=== PATIENT | male | born 1985 | race Caucasian/White ===

== ENCOUNTER 2023-11-18 21:07 | Emergency (ER) | payer BC, SELFPAY ==
[2023-11-18 21:13] VITALS: BP 135/77
[2023-11-18 21:26] LABS: % Basophils 0.4 % (0-2); % Eosinophils 5.3 % (0-6); % Immature Granulocytes 0.3 % (0-0.5); % Lymphocytes 19.4 % (20.5-51.1); % Monocytes 4.8 % (1.7-9.3); % Neutrophils 69.8 % (42.2-75.2); Absolute Basophils 0.1 10^3/uL (0-0.2); Absolute Eosinophils 0.6 10^3/uL (0-0.7); Absolute Lymphocytes 2.3 10^3/uL (1.2-3.4); Absolute Monocytes 0.6 10^3/uL (0.1-0.6); Absolute Neutrophils 8.2 10^3/uL (1.4-6.5); Hematocrit 42.4 % (39.0-52.0); Hemoglobin 14.5 g/dL (13.0-18.0); Mean Corp Hgb Conc. 34.2 g/dL (33.0-37.0); Mean Corpuscular Hgb 27.1 pg (27.0-31.0); Mean Corpuscular Volume 79.1 fL (80.0-94.0); Mean Platelet Volume 9.2 fL (7.4-10.4); Nucleated Red Blood Cells % 0 % (-); Platelet Count 296 10^3/uL (130-400); Red Blood Cell Count 5.36 10^6/uL (4.70-6.10); Red Cell Dist. Width 14.6 % (11.5-14.5); White Blood Cell Count 11.8 10^3/uL (4.8-10.8)
[2023-11-18 21:47] LABS: ALT (SGPT) 26 U/L (0-50); AST (SGOT) 23 U/L (17-59); Albumin 4.5 g/dl (3.5-5.0); Alkaline Phosphatase 68 U/L (38-126); Blood Urea Nitrogen 22 mg/dl (9-20); Calcium 9.6 mg/dl (8.4-10.2); Carbon Dioxide 26 mmol/L (22-30); Chloride 103 mmol/L (98-107); Glucose 133 mg/dl (70-99); Potassium 4.1 mmol/L (3.5-5.1); Sodium 138 mmol/L (135-145); Total Bilirubin 0.4 mg/dl (0.2-1.3); Total Protein 6.8 g/dl (6.3-8.2); eGFR > 60.00
[2023-11-18 21:51] LABS: Troponin I < 0.012 ng/ml
[2023-11-18 22:02] VITALS: BMI 37.5
[2023-11-18 22:07] VITALS: BP 118/72
[2023-11-18 22:45] LABS: D-Dimer < 0.27 ug/mlFEU (0.00-0.50)
[2023-11-18 22:59] LABS: Troponin I < 0.012 ng/ml
[2023-11-18 23:00] VITALS: BP 106/62
--- NOTE | 2023-11-18 23:49 | ED.GENMED ---
History of Present Illness
General
Chief Complaint: Chest Pain
Source: patient and family
Time Seen by Provider: 11/18/23 22:08
Travel History
Have you had any contact with someone who has COVID-19?: No
Do you have any symptoms of coronavirus? Fever > 100 degrees, chills, cough, shortness of breath, sore throat, loss of taste or smell, muscle aches, or headache?: No
History of Present Illness
History of Present Illness:
38-year-old male who presents with pain in the right lateral chest payne. The patient states that he came for evaluation because his gave concerns. Pain started mostly yesterday. Pain is worse when he twists and turns his head to the left
and right. States pain hurts toward the back in that same area bilaterally. 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 Patient denies shortness of breath. Does have a little bit of pain when he takes a big
deep breath. States he took ibuprofen. No shortness of breath. No leg swelling. No nausea or vomiting. No fevers.
Past History
Past History
ED Past Medical History: Other (Mitral valve prolapse.)
ED Past Surgical History: Appendectomy and Tonsilectomy (and Adnoids, Tubes in ears, R Ankle surg.)
Social History
Tobacco: Smoker (States he stopped four days ago.)
Alcohol: Occasional
Drug: None
Personal:
Living: with family
Employment: Employed
Family History
Family History: Other (Noncontributory)
Phy Exam
Physical Exam
Physical Exam:
CONSTITUTIONAL Patient alert and oriented to person, place and time. Well-appearing. Vital signs reviewed.
HEAD atraumatic, normocephalic.
EYES eyelids normal to inspection, Extraocular muscles intact, Conjunctiva normal, Sclera normal.
NECK normal range of motion, Trachea midline, no jugular venous distention.
RESPIRATORY CHEST No respiratory distress noted, Chest expansion equal, Bilateral breath sounds clear.
CARDIOVASCULAR regular rate and rhythm, Heart sounds normal.
ABDOMEN No distention.
BACK normal inspection, no obvious deformities
UPPER EXTREMITY range of motion normal, Motor strength normal, no cyanosis, no edema.
LOWER EXTREMITY range of motion normal, Motor strength normal, no cyanosis, no edema.
NEURO Speech normal, No focal motor deficits, S[place]an coma scale 15, Memory normal, Cranial Nerves intact to screening exam.
SKIN skin warm, dry, and normal in color.
PSYCHIATRIC patient oriented to person place and time, Normal affect.
Scores
Heart Score for Chest Pain Patients
STEMI patient?: No
History: Slightly or Non-Suspicious
ECG: Normal
Age: </= 45 years
Risk Factors: No Risk Factors
Troponin: </= Normal Limit
Heart Score for Chest Pain Patients: 0
Heart Score Risk: 2.5% MACE over next 6 weeks
Course
Orders/Labs/Results
Orders:
Orders
11/18/23 21:08
Electrocardiogram (*1) Urgent
Reason for Study: Chest Pain
EKG- Treatment ONCE
11/18/23 21:15
Cardiac Monitoring- Treatment ONCE
O2 Therapy [RESP] Urgent
Titrate/Wean O2 to maintain O2 sat greater than (%): 90
Special Instructions: Maintain sats >/=90%
Pulse Ox/spot Check [RESP] Urgent
Quantity: 1
Special Instructions: ON ROOM AIR
11/18/23 21:16
CXR2 [CR Chest - 2 Views ] Urgent
Comment:
Reason For Exam: chest pain
11/18/23 21:20
Complete Blood Count/With Diff Urgent
Comprehensive Metabolic Panel Urgent
Troponin I Urgent
11/18/23 22:25
D-Dimer Urgent
Troponin I Urgent
Abnormal Lab Results
11/18/23
21:20
WBC 11.8 H 10^3/uL
(4.8-10.8)
MCV 79.1 L fL
(80.0-94.0)
RDW 14.6 H %
(11.5-14.5)
Absolute Neuts (auto) 8.2 H 10^3/uL
(1.4-6.5)
Lymphocytes % 19.4 L %
(20.5-51.1)
BUN 22 H mg/dl
(9-20)
Glucose 133 H mg/dl
(70-99)
11/18/23 21:20
11/18/23 21:20
Vital Signs
Initial and Last Documented VS:
Initial Vital Signs
Temp Pulse Resp BP Pulse Ox
98.3 F 88 18 135/77 95
11/18/23 21:13 11/18/23 21:13 11/18/23 21:13 11/18/23 21:13 11/18/23 21:13
Last Documented Vital Signs
Temp Pulse Resp BP Pulse Ox
98.3 F 72 21 106/62 94
11/18/23 21:13 11/18/23 23:45 11/18/23 23:45 11/18/23 23:00 11/18/23 23:45
MDM/Problems Addressed
Differential Diagnosis Includes:
Pulmonary embolism, acute myocardial infarction, chest wall pain, reflux disease, aortic dissection, zoster
MDM/Problems Addressed:
Chest wall pain
*Radiology
Radiology exam reviewed: radiology read reviewed
*Pulse Oximetry
Patient hypoxic: no
*EKG
Interpreted by ED Provider?: Yes
Interpretation: normal
Rate: normal
Rhythm: sinus
[place]: normal axis
Interval: normal interval
QRS Pattern: normal QRS
Ischemia: no ischemia
*Cartoon Artist Interpretation
Rate: normal
Interpretation: normal
Rhythm: sinus
*Critical Care Note
Total Time (30-74mins, 75-104mins- exclusive of procedures): Not Applicable
Data Reviewed
Source: patient and family
Further Testing Considered But Not Given:
Consider D-dimer but patient has no risks and pain is clearly worse with movement.
Patient Management
Escalation/DeEscalation of care consider admission/obs:
Pain clearly worse with movement. Troponin x 2 unremarkable. Okay for discharge and outpatient follow-up. EKG normal. 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
ED Attending Note
-
Portions of this chart may have been created with voice recognition software.� Occasional wrong word or��sound alike� substitutions may have occurred due to the inherent limitations of voice recognition software.
Discharge Plan
Departure
Patient Disposition: Home (Routine Discharge)
Date of Disposition: 11/18/23
Time of Disposition: 23:52
Patient with high blood pressure during this ER visit?: No
Discharge Problem:
Chest pain
Instructions: Chest Pain PCP Follow Up
Prescriptions:
No Action
No Meds [No Current Medications]
0
amoxicillin 500 mg tablet
1,000 mg PO TID Qty: 19 0RF
azithromycin [Zithromax] 250 mg tablet
250 mg PO DAILY Qty: 6 0RF
Rx Instructions:
2 tabs day 1, then 1 tab for 4 days
Referrals:
Igor Hawk DO [Family Provider] -
Activity Restrictions/Additional Instructions:
Use ibuprofen as needed for control. Return immediately for shortness of breath, worsening symptoms, weakness of any kind or any other concerns. Please see your doctor in follow-up in the next 3 to 5 days
Interventions
Interventions:
*Risk Screen - Suicide Last Done: 11/18/23 22:02
*General Assessment Last Done: 11/18/23 22:02
*Neglect/Abuse Screening Last Done: 11/18/23 21:11
ED- Fall Risk Assessment Last Done: 11/18/23 22:02
*ED COVID-19 Vaccine History Last Done: 11/18/23 22:02
ED- Cardiac Assessment Last Done: 11/18/23 22:02
Discharge Date and Time
Print Language: BRITISH
== END 2023-11-19 00:09 | disposition home or self-care (01) ==
LOC: EMR 21:07
PROVIDERS: Emergency Medicine; EMERGENCY PHYSICIAN Emergency Medicine; FAMILY PHYSICIAN Family Medicine
DX: R07.89 Other chest pain (principal); I34.1 Nonrheumatic mitral (valve) prolapse; Z87.891 Personal history of nicotine dependence; Z88.5 Allergy status to narcotic agent; Z91.041 Radiographic dye allergy status
CPT/HCPCS: 99284; 94760; 71046; 80053; 84484; 85025; 85379; 93005

== ENCOUNTER 2024-02-27 17:54 | Emergency (ER) | payer SELFPAY ==
[2024-02-27 17:56] VITALS: BP 143/82
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
[2024-02-27] MEDS: MOTRIN 600 MG PO (19:07)
== END 2024-02-27 21:01 | disposition home or self-care (01) ==
LOC: EMR 17:54
PROVIDERS: EMERGENCY PHYSICIAN Emergency Medicine; FAMILY PHYSICIAN Family Medicine
DX: S16.1XXA Strain of muscle, fascia and tendon at neck level, initial encounter (principal); V89.2XXA Person injured in unspecified motor-vehicle accident, traffic, initial encounter; F17.200 Nicotine dependence, unspecified, uncomplicated; R03.0 Elevated blood-pressure reading, without diagnosis of hypertension
CPT/HCPCS: 99284; 72125

== ENCOUNTER → 2024-07-11 13:21 | Outpatient (REF) | payer OTHER, SELFPAY | LOC: REG 13:21 | PROVIDERS: ATTENDING PHYSICIAN Chiropractor | DX: M53.1 Cervicobrachial syndrome (principal); M99.01 Segmental and somatic dysfunction of cervical region; S13.4XXA Sprain of ligaments of cervical spine, initial encounter | CPT/HCPCS: 70030; 72040 ==

== ENCOUNTER 2024-08-16 20:21 | Emergency (ER) | payer BC, SELFPAY ==
[2024-08-16 20:52] VITALS: BP 150/88
[2024-08-16 21:19] LABS: % Basophils 0.4 % (0-2); % Eosinophils 3.1 % (0-6); % Immature Granulocytes 0.3 % (0-0.5); % Lymphocytes 23.1 % (20.5-51.1); % Monocytes 6.3 % (1.7-9.3); % Neutrophils 66.8 % (42.2-75.2); Absolute Basophils 0.1 10^3/uL (0-0.2); Absolute Eosinophils 0.4 10^3/uL (0-0.7); Absolute Lymphocytes 2.6 10^3/uL (1.2-3.4); Absolute Monocytes 0.7 10^3/uL (0.1-0.6); Absolute Neutrophils 7.6 10^3/uL (1.4-6.5); Hemoglobin 14.9 g/dL (13.0-18.0); Mean Corp Hgb Conc. 33.9 g/dL (33.0-37.0); Mean Corpuscular Hgb 28.1 pg (27.0-31.0); Mean Platelet Volume 8.6 fL (7.4-10.4); Nucleated Red Blood Cells % 0 % (-); Platelet Count 233 10^3/uL (130-400); Red Cell Dist. Width 13.7 % (11.5-14.5); White Blood Cell Count 11.4 10^3/uL (4.8-10.8)
[2024-08-16 21:39] LABS: ALT (SGPT) 29 U/L (0-50); AST (SGOT) 22 U/L (17-59); Alkaline Phosphatase 69 U/L (38-126); Blood Urea Nitrogen 27 mg/dl (9-20); Carbon Dioxide 28 mmol/L (22-30); Chloride 99 mmol/L (98-107); Glucose 90 mg/dl (70-99); Sodium 139 mmol/L (135-145); Total Bilirubin 0.8 mg/dl (0.2-1.3); Total Protein 7.4 g/dl (6.3-8.2); eGFR > 60.00
[2024-08-16 22:54] VITALS: BP 127/78; BMI 35.0
--- NOTE | 2024-08-17 01:08 | ED.GENMED ---
History of Present Illness
General
Chief Complaint: Headache
Source: patient
Exam Limitations: none
Time Seen by Provider: 08/17/24 00:45
Nursing documentation reviewed up to this point in time: agreed with
History of Present Illness
History of Present Illness:
Pleasant 38-year-old male presents with migraine headache. Does have a history of migraines and has had a headache for 5 days. He states that the pain is intermittent. Denies fever or chills. Reports no chest pain or shortness of breath. He is
concerned because there is a history of cerebral aneurysm in his family and he wanted to get evaluated.Patient denies neck pain. He reports pain with palpation of the left eye. Denies any visual acuity changes.
Past History
Past History
ED Past Medical History: Other (Mitral valve prolapse.)
ED Past Surgical History: Appendectomy and Tonsilectomy (and Adnoids, Tubes in ears, R Ankle surg.)
Social History
Tobacco: Smoker (States he stopped four days ago.)
Alcohol: Occasional
Drug: None
Personal:
Living: with family
Employment: Employed
Family History
Family History: Other (Noncontributory)
Review of Systems
Review of Systems
Allergies reviewed?: Yes
All Other Systems: ROS reviewed and negative except as documented in HPI and ROS
Neurological: Reports headache; Denies dizzy, weakness or numbness
Psychiatric: Reports anxiety
Phy Exam
General Physical Exam
General Presentation: well appearing and no apparent distress
General Skin: warm and dry
General Habitus: normal
General Mental: alert
General Hydration: appears well hydrated
ENT Exam
ENT Exam: EOMI, pharynx normal, neck supple and normocephalic
Eye Exam
Eye Exam: PERRL, cornea clear and conjunctiva normal
Cardiovascular Exam
Cardiovascular Exam: regular rate/rhythm, no edema, no murmur and normal peripheral pulses
Pulmonary Exam
Pulmonary Exam: lungs clear, no respiratory distress, no rales, no crackles, no rhonchi, no stridor, no wheezing and no cough
Gastrointestinal Exam
Gastrointestinal Exam: normal bowel sounds, non tender, soft, no organomegaly, no pulsatile mass and non distended
Neurological Exam
Neurological Exam: alert, oriented x3, no motor deficits and speech normal
Musculoskeletal Exam
Musculoskeletal Exam: full ROM and no edema
Skin Exam
Skin Exam: normal color, warm/dry, no rash and no petechia
Psychiatric Exam
Psychiatric Exam: normal mood/affect
Course
Orders/Labs/Results
Orders:
Orders
08/16/24 20:[address] [CT Head W/o Iv Contrast] Urgent
Comment:
Reason For Exam: headache/nasuea
08/16/24 21:10
Complete Blood Count/With Diff Urgent
Comprehensive Metabolic Panel Urgent
Erythrocyte Sed Rate Urgent
Comment: ADDED
08/17/24 01:06
Add On- LAB Urgent
Tests Added?: sed rate
Abnormal Lab Results
08/16/24
21:10
WBC 11.4 H 10^3/uL
(4.8-10.8)
Absolute Neuts (auto) 7.6 H 10^3/uL
(1.4-6.5)
Absolute Monos (auto) 0.7 H 10^3/uL
(0.1-0.6)
BUN 27 H mg/dl
(9-20)
08/16/24 21:10
08/16/24 21:10
Vital Signs
Initial and Last Documented VS:
Initial Vital Signs
Temp Pulse Resp BP Pulse Ox
98.5 F 68 18 150/88 98
08/16/24 20:52 08/16/24 20:52 08/16/24 20:52 08/16/24 20:52 08/16/24 20:52
Last Documented Vital Signs
Temp Pulse Resp BP Pulse Ox
98.5 F 81 19 120/75 96
08/16/24 20:52 08/17/24 01:28 08/17/24 01:28 08/17/24 01:28 08/17/24 01:28
*Critical Care Note
Total Time (30-74mins, 75-104mins- exclusive of procedures): Not Applicable
Update Note
Update Note:
CT HEAD
IMPRESSION:
No acute hemorrhage, herniation, or hydrocephalus.
No calvarial fracture.
The visualized paranasal sinuses and mastoid air cells are clear.
Patient is asymptomatic at this time.
No headache
He refuses to take any medicine. He states that if he needs to he will take ibuprofen at home.
He denies any neck pain or chest pain
No horizontal or vertical nystagmus on exam
Discussed possible MRI as an outpatient if symptoms persist. Patient has a family doctor and will follow-up. He requests no further testing at this time. He does not want any treatment for his dehydration. He will orally hydrate.
ED Attending Note
-
Portions of this chart may have been created with voice recognition software.� Occasional wrong word or��sound alike� substitutions may have occurred due to the inherent limitations of voice recognition software.
Discharge Plan
Departure
Patient Disposition: Home (Routine Discharge)
Date of Disposition: 08/17/24
Time of Disposition: 01:16
Patient with high blood pressure during this ER visit?: Yes
Discharge Problem:
Headache, Acute dehydration
Instructions: Headache, Adult (DC), Dehydration in adults - ED discharge instructions
Prescriptions:
No Action
No Meds [No Current Medications]
0
amoxicillin 500 mg tablet
1,000 mg PO TID Qty: 19 0RF
azithromycin [Zithromax] 250 mg tablet
250 mg PO DAILY Qty: 6 0RF
Rx Instructions:
2 tabs day 1, then 1 tab for 4 days
Referrals:
Sourav Dean MD [Active] - As needed
Igor Hawk DO [Family Provider] -
Activity Restrictions/Additional Instructions:
It was a pleasure meeting you and taking part in your care. We hope for your continued healing and wellness.
Please read discharge instructions in their entirety. However, they are for general education and may not describe your exact diagnosis at discharge. Information on your ER visit and medical conditions were discussed with you along with appropriate
follow up information...
If indicated, please take your medications as instructed and indicated on discharge paperwork.
Please schedule a follow up appointment as directed. Call to schedule an appointment
Please return to the emergency department with ANY change in, persisting, or worsening of symptoms. If any of your symptoms do not improve, or persist, or become more severe within 6-12 hours, please return to the emergency department for further
care.
Please return to the emergency department if you develop a headache, neck pain/stiffness, fever greater than 100.4F, chest pain, shortness of breath, persistent nausea, vomiting, slurred speech, difficulty walking, numbness/tingling, weakness, signs
of infection or any other symptoms that are worrisome to you.
If you have any questions or concerns please do not hesitate to call the Hospital at or E-mail me directly at [email or web address]
Interventions
Interventions:
*Risk Screen - Suicide Last Done: 08/16/24 22:54
*General Assessment Last Done: 08/16/24 20:52
*Neglect/Abuse Screening Last Done: 08/16/24 22:54
*ED- Fall Risk Assessment Last Done: 08/16/24 22:54
*ED COVID-19 Vaccine History Last Done: 08/16/24 20:52
*Nursing Disposition Last Done: 08/17/24 01:28
ED- Neurological Assessment Last Done: 08/16/24 22:54
Discharge Date and Time
Discharge Date/Time: 08/17/24 01:28
Print Language: ETHIOPIAN
[2024-08-17 01:28] VITALS: BP 120/75
[2024-08-17 01:50] LABS: Erythrocyte Sed Rate 2 mm/hour (0-20)
== END 2024-08-17 01:28 | disposition home or self-care (01) ==
LOC: EMR 20:21
PROVIDERS: Emergency Medicine; EMERGENCY PHYSICIAN Student in an Organized Health Care Education/Training Program; FAMILY PHYSICIAN Family Medicine
DX: R51.9 Headache, unspecified (principal); E86.0 Dehydration; I34.1 Nonrheumatic mitral (valve) prolapse; F17.200 Nicotine dependence, unspecified, uncomplicated; Z90.49 Acquired absence of other specified parts of digestive tract
CPT/HCPCS: 99284; 70450; 80053; 85025; 85652

== ENCOUNTER 2025-05-25 08:44 | Emergency (ER) | payer BC, SELFPAY ==
[2025-05-25 08:55] VITALS: BP 128/69
--- NOTE | 2025-05-25 09:52 | ED.GENMED ---
History of Present Illness
General
Chief Complaint: Back Pain
Time Seen by Provider: 05/25/25 09:31
History of Present Illness
History of Present Illness:
Patient is a 39-year-old male is otherwise healthy presenting to the emergency department back pain. Patient states that a week ago he was lifting something heavy. He developed shoulder pain after that incident. He had his use a massage gun
over his entire back after the incident and noticed some soreness to the entire back. However it is worse in the left mid back. 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 He states that it does hurt when he takes
in a deep breath but states that is due to pain in the back. He states that when he takes ibuprofen the pain resolves and the breathing improves as well. No long car rides or plane rides, no hemoptysis, no malignancy. No shortness of breath. He
does state that his father had a blood clot though he was also diagnosed with A-fib. Patient states he is only maintained 200 mg of ibuprofen. He states that he is here at the request of his family.
Past History
Past History
ED Past Medical History: Other (Mitral valve prolapse.)
ED Past Surgical History: Appendectomy and Tonsilectomy (and Adnoids, Tubes in ears, R Ankle surg.)
Social History
Tobacco: Smoker (States he stopped four days ago.)
Alcohol: Occasional
Drug: None
Personal:
Living: with family
Employment: Employed
Family History
Family History: Other (Noncontributory)
Phy Exam
Physical Exam
Physical Exam:
GENERAL: no acute distress
HEENT: atraumatic
NECK: no midline tenderness, normal range of motion
BACK: no midline tenderness, no other obvious trauma
CHEST: Tenderness to the posterior left lower ribs with no obvious ecchymoses or rashes, no flail segment, no subcutaneous emphysema, no other obvious trauma
LUNGS: clear to auscultation bilaterally
CARDIOVASCULAR: regular rate and rhythm
ABDOMEN: soft, non-tender, no masses, no other obvious trauma
PELVIS: stable, no obvious injury
EXTREMITIES: moving all extremities, distal pulses intact, no other obvious trauma
NEUROLOGIC: awake, alert x 3, no focal deficits
Course
Orders/Labs/Results
Orders:
Orders
05/25/25 09:40
Ketorolac [Toradol] 15 mg IM NOW STA
CR Ribs-joanna 4 Vw W/pa Chest Urgent
Comment:
Reason For Exam: left posterior rib tenderness
05/25/25 09:45
Lidocaine [Lidocaine 4% Patch] 1 patch TOPICAL DAILY
Apply Lidocaine patch(s) to:: left back
Vital Signs
Initial and Last Documented VS:
Initial Vital Signs
Temp Pulse Resp BP Pulse Ox
98.3 F 93 16 128/69 98
05/25/25 08:55 05/25/25 08:55 05/25/25 08:55 05/25/25 08:55 05/25/25 08:55
Last Documented Vital Signs
Temp Pulse Resp BP Pulse Ox
98.3 F 93 16 128/69 98
05/25/25 08:55 05/25/25 08:55 05/25/25 08:55 05/25/25 08:55 05/25/25 09:54
MDM/Problems Addressed
Differential Diagnosis Includes:
Patient is a 39-year-old man presenting to the emergency department with left-sided back pain. On arrival vitals unremarkable. Exam does show reproducible posterior chest wall tenderness. Neuroexam is otherwise reassuring. Likely musculoskeletal
pain. Considered rib contusion though less likely given no traumatic injuries. Considered PE however history and exam less likely. After shared decision making we will proceed with x-ray to evaluate for rib given the tenderness over the ribs as
well as pain control.
*Pulse Oximetry
SaO2: 98
Oxygen Mode of Delivery: Room air
Patient hypoxic: no
*Critical Care Note
Total Time (30-74mins, 75-104mins- exclusive of procedures): Not Applicable
Update Note
Update Note:
Nursing notified that patient left the department without x-ray or medications. I did call the patient. He stated that he left secondary to the wait. They will get anti-inflammatory such as naproxen on their way home. Strict return precautions
given.
ED Attending Note
-
Portions of this chart may have been created with voice recognition software.� Occasional wrong word or��sound alike� substitutions may have occurred due to the inherent limitations of voice recognition software.
Discharge Plan
Departure
Prescriptions:
No Action
No Meds [No Current Medications]
0
amoxicillin 500 mg tablet
1,000 mg PO TID Qty: 19 0RF
azithromycin [Zithromax] 250 mg tablet
250 mg PO DAILY Qty: 6 0RF
Rx Instructions:
2 tabs day 1, then 1 tab for 4 days
Referrals:
Igor Hawk DO [Family Provider, Family Practice]
Interventions
Interventions:
*Risk Screen - Suicide Last Done: 05/25/25 08:55
*General Assessment Last Done: 05/25/25 08:55
*Neglect/Abuse Screening Last Done: 05/25/25 08:55
Discharge Date and Time
Print Language: CHINESE
== END 2025-05-25 10:15 | disposition left against medical advice (07) ==
LOC: EMR 08:44
PROVIDERS: EMERGENCY PHYSICIAN Student in an Organized Health Care Education/Training Program; FAMILY PHYSICIAN Family Medicine
DX: M54.9 Dorsalgia, unspecified (principal); I34.1 Nonrheumatic mitral (valve) prolapse; F17.200 Nicotine dependence, unspecified, uncomplicated
CPT/HCPCS: 99282